=== PATIENT | female | born 1975 | race Caucasian/White ===

== ENCOUNTER 2024-01-24 16:36 | Emergency (ER) | payer OTHER, SELFPAY ==
[2024-01-24] VITALS (14 sets, daily range): BP systolic 204–217; BP diastolic 97–106; PULSE 48–62; RESP 14–16; TEMP 36.4; O2SAT 95–97
--- NOTE | 2024-01-24 16:53 | ED.GENADULT ---
HPI - General Adult General Time Seen by Provider: 16:54 Date Seen: 01/24/24 Chief complaint: Hypertension Stated complaint: high blood pressure Time Seen by Provider: 01/24/24 16:53 Source: patient, RN notes reviewed, old records reviewed and other (Provider at urgent care) Mode of arrival: ambulatory Limitations: no limitations History of Present Illness HPI narrative: Colleen is a very pleasant 48-year-old female with history of recent weight gain, caffeine use who comes to the emergency room from the clinic today for elevated blood pressures. Colleen was noted to have had discomfort in her ear and went to urgent care at which time they removed the end of a hearing assistance piece. However, during that time she had elevated blood pressure of 227/101. Urgent care provider tells me that you she was able to find some indigestion type problems and therefore felt this needed to be evaluated in the emergency room. Patient was sent by private vehicle. Here in the emergency room a me tells me that her blood pressure has been elevating over the past 2 years and was considered borderline. She states that she never needed to use of blood pressure medication. She notes a 30 lb weight gain over the past few years and believes that she is in menopause. She denies chest pain shortness of breath headache visual changes nausea vomiting. The indigestion she experienced was episodic yesterday and was after she had a Coke Zero which she states is often a trigger. No such symptoms today. No changes in how she feels with activity. Patient has recently had cold-like symptoms and has been using Zicam. She also takes hydroxyzine occasionally for itching. She describes itching of her skin her hands and her scalp at times. She has not had her TSH checked in the past. Patient does note that she has had some back pain but this has been present previously and is usually associated with needing or bending over her computer. 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 Related Data Home Medications ?Medication ?Instructions ?Recorded ?Confirmed cholecalciferol (vitamin D3) 10 10 mcg PO QDAY 01/24/24 01/24/24 mcg (400 unit) capsule hydroxyzine HCl 25 mg tablet mg PO 01/24/24 01/24/24 sertraline 100 mg tablet 100 mg PO BID 01/24/24 01/24/24 Previous Rx's ?Medication ?Instructions ?Recorded ciprofloxacin 0.3 %-dexamethasone 4 p otic (ear) BID #7.5 mL 01/24/24 0.1 % ear drops,suspension lisinopril 10 1 tab PO DAILY #14 tabs 01/24/24 mg-hydrochlorothiazide 12.5 mg tablet (Zestoretic) Allergies Allergy/AdvReac Type Severity Reaction Status Date / Time amoxicillin Allergy Severe hands and Verified 01/24/24 15:47 feet swelling nickel Allergy Mild swelling Verified 01/24/24 15:47 at site penicillin V Allergy Mild swelling Verified 01/24/24 15:47 sulfamethoxazole Allergy Mild Hives Verified 01/24/24 15:47 trimethoprim Allergy Mild Hives Verified 01/24/24 15:47 Sulfa drugs Allergy Mild Hives Uncoded 01/24/24 15:47 Review of Systems Status of ROS: Reports: 10 or more systems reviewed and unremarkable except as noted in History and below Narrative: Stressful job at times. Const: Denies: fever, chills or fatigue Eyes: Denies: change in vision, blurry vision, floaters or seeing flashes ENMT: Reports: nasal congestion; Denies: throat pain, neck pain, difficulty swallowing, vertigo or nasal discharge Cardio: Denies: chest pain, palpitations, edema, swelling of feet/ankles, lightheadedness or shortness of breath with exertion Resp: Denies: shortness of breath, cough or wheezing GI: Reports: heartburn (Transient yesterday); Denies: nausea, vomiting, diarrhea, difficulty swallowing or blood in stool : Denies: painful urination or urinary frequency Musculo: Denies: neck pain Integ/Breast: Reports: itching; Denies: rash Neuro: Denies: headache, numbness in extremities, weakness in extremities, lack of coordination, dizziness or vertigo Endo: Denies: fatigue Allergy/Immuno: Denies: wheezing PFSH PFSH Social History Smoking Status: Never smoker Non-prescribed substance use: denies use Exam Narrative: Exam Narrative: Alert and oriented. No acute distress. EOM is full. Face is symmetrical and mentation is normal. Neck is supple. Heart with regular rate and rhythm without additional heart sounds or murmurs. Lungs are clear bilaterally. Abdomen is soft nontender. Lower extremities without edema or calf tenderness. Moving all extremities. Nontoxic in appearance. Const: Vital Signs, click to edit/add: Vital Signs - 24 hr 01/24/24 16:42 Temperature 97.6 F Pulse Rate [Pulse Oximeter] 60 Respiratory Rate 14 Blood Pressure [Ri ght Forearm] 207/106 H Pulse Oximetry 97 Oxygen Delivery Me thod Room Air Documenting provider has reviewed patient's vital signs: yes Course Course ED Course: Colleen is presenting with elevated blood pressure. Patient was sent because of concerns regarding possible angina equivocal in symptoms of heartburn and back pain. However upon further discussion heartburn was transient and patient states that this is usually associated with certain foods or drinks with Coke Zero being 1 of them. She did have Coke Zero yesterday. No such symptoms today. Patient notes that her back pain is chronic and that she actually feels better after chiropractic appointment earlier today. Therefore I do not think we are dealing with a hypertensive urgency or emergency. That being said, patient certainly should be considered for blood pressure treatment. My guess is that she is going to have a very hard time getting in to the clinic in a timely fashion and therefore have offered to do some blood tests and evaluation here today. Of course if she wants to I will allow her to depart but she is opting to have test done here. Will do an EKG, troponin, CBC, comprehensive panel, TSH, magnesium, and chest x-ray. Reevaluation(s) Reevaluation #1: Colleen continues to be asymptomatic. Blood pressure did drop to 190 systolic without treatment. Most recent blood pressure is 204 systolic. I spoke to Colleen about the initiation of antihypertensives using a diuretic. She is in agreement with this. Reevaluation #2: Patient notes that she did take a COVID test last week and it was negative. Vital Signs Vital signs: Initial Vital Signs Temperature 97.6 F 01/24/24 16:42 Temperature Source Temporal Artery Scan 01/24/24 16:42 Pulse Rate 60 01/24/24 16:42 Pulse Rhythm Regular 01/24/24 16:42 Respiratory Rate 14 01/24/24 16:42 Blood Pressure 207/106 H 01/24/24 16:42 Blood Pressure Mean 139 H 01/24/24 16:42 Blood Pressure Position Sitting 01/24/24 16:42 Pulse Oximetry 97 09/20/24 16:42 Oxygen Delivery Method Room Air 01/24/24 16:42 Vital Signs Temperature 97.6 F 01/24/24 16:42 Pulse Rate 60 01/24/24 16:42 Respiratory Rate 14 01/24/24 16:42 Blood Pressure 207/106 H 01/24/24 16:42 Pulse Oximetry 97 01/24/24 16:42 Oxygen Delivery Method Room Air 01/24/24 16:42 Temperature 97.6 F 01/24/24 16:42 Pulse Rate 60 01/24/24 16:42 Respiratory Rate 14 01/24/24 16:42 Blood Pressure 207/106 H 01/24/24 16:42 Pulse Oximetry 97 01/24/24 16:42 Oxygen Delivery Method Room Air 01/24/24 16:42 Medical Decision Making MDM Narrative Medical decision making narrative: 1. Hypertension-no evidence of a hypertensive emergency today. However, given patient's elevated blood pressures that have been climbing over the past 2 years I do think she is in need of treatment. Creatinine and electrolytes are within normal limits. EKG does not show any acute changes. Given this will start patient on a diuretic. Because her blood pressure is elevated over 150 there is a suggestion by up-to-date that dual therapy is superior. Therefore will use lisinopril/hydrochlorothiazide also known as Zestoretic at 10 mg/12.5 mg daily. I do not have this available in the hospital and therefore have given her a dose of lisinopril 10 mg p.o.. I have warned her that this is a diuretic and she will likely urinate a few times tonight. Tomorrow she may start her Zestoretic which was sent to the pharmacy. I did state that the goal of the therapy now is not to have normal blood pressure tomorrow but start a gradual reduction with the ultimate goal of less than 120 systolic in the future. Patient may also start walking 10-15 minutes at a leisurely pace. She should also have benefit from decreasing the amount of caffeine daily. 2. Disposition-home after receiving lisinopril 10 mg p.o. here. Recommend follow-up next week with either the [facility] or our clinic attached here to the hospital. Would recommend recheck of potassium and creatinine with a basic panel because of use of new medications. Also recommend follow-up for the chronic itching the patient experiences. She did have a mild elevation of liver function tests but I would suspect this may be related to fatty liver. Further evaluation is necessary. Return to the emergency room for headache, visual changes, changes in mentation, chest pain, vomiting, worsening symptoms. TSH is still pending at this time. Medical Records Medical records reviewed: Yes I reviewed the patient's medical records Lab Data Lab results reviewed: Yes I reviewed the patient's lab results Labs: Lab Results 01/24/24 01/24/24 Range/Units 17:15 17:35 WBC 9.14 (4.50-11.00) K/uL RBC 4.55 (4.00-5.20) m/uL Hgb 14.2 (12.0-16.0) gm/dL Hct 43.4 (33.0-51.0) % MCV 95 (80-100) fL MCH 31 (26-34) pg MCHC 33 (32-36) gm/dL RDW Coeff of Mitra 13.0 (11.5-15.5) % Plt Count 275 (140-440) K/uL Neut % (Auto) 64.0 (42.0-72.0) % Lymph % (Auto) 25.6 (20-44) % [place] % (Auto) 6.5 (0.0-11.0) % Eos % (Auto) 3.1 (0.0-7.0) % Baso % (Auto) 0.5 (0.0-3.0) % Neut # (Auto) 5.85 (1.7-7.0) K/uL Lymph # (Auto) 2.34 (0.90-2.90) K/uL [place] # (Auto) 0.60 (0.00-0.90) K/UL Eos # (Auto) 0.28 (0.00-0.50) K/uL Baso # (Auto) 0.05 (0.00-0.30) K/uL Abs Immat Gran (auto) 0.03 (0.00-0.30) K/uL Imm/Tot Granulo (auto) 0.3 % Sodium 136 (135-149) mmol/L Potassium 3.9 (3.6-5.1) mmol/L Chloride 103 (96-114) mmol/L Carbon Dioxide 24 (20-32) mmol/L Anion Gap 9 (7-15) mEq/L BUN 15 (5-24) mg/dL Creatinine 0.7 (0.5-1.5) mg/dL Estimated GFR 106 ml/min Glucose 94 (60-115) mg/dL Calcium 10.1 (8.4-10.6) mg/dL Magnesium 2.2 (1.5-2.6) mg/dL Total Bilirubin 0.9 (0.1-1.5) mg/dL AST 49 H (12-35) U/L ALT 68 H (4-35) U/L Alkaline Phosphatase 81 (40-150) U/L Total Protein 7.6 (6.0-8.3) g/dL Albumin 4.6 (3.3-5.0) g/dL POC Troponin I 0.01 (0.01-0.04) ng/ml Imaging Data Chest x-ray: Attestation: I have reviewed the pertinent imaging results. My impression: No obvious abnormalities. Radiologist's impression: FINDINGS: The sensitivity and specificity of the exam are moderately limited by the patient`s body habitus. Mediastinum: The mediastinum is normal in appearance. The heart silhouette is normal in size and morphology. Lung: Both lungs are unremarkable in appearance. No sign of pleural effusion seen. No pneumothorax is identified. Bone and Soft tissue: Unremarkable for age. Metallic brassiere clips are noted over the neck and thoracic inlet. IMPRESSION: 1. No acute cardiopulmonary disease is seen. ECG Data Attestation: I personally reviewed and interpreted this ECG as follows: Interpretation: EKG by my read shows sinus bradycardia at a rate of 58. QT and SC intervals within normal limits. I do not see any acute ST or T-wave changes. Poor R-wave progression is noted. Discharge Plan Discharge Clinical Impression: Hypertension Patient Disposition: Home, Self-Care Condition: Improved Additional Instructions: 1. Your given lisinopril which is an NHUNG-inhibitor and diuretic for your blood pressure tonight. Tomorrow picker and sorter load and unload your new blood pressure medication which is a combination of lisinopril and hydrochlorothiazide. Both of these medications are diuretics and act on the kidney. You may start taking this medication tomorrow morning. 2. Trying keep a diary of blood pressure checks throughout the week. 3. Recommend follow-up at the [facility] [phone] or our [facility] attached the [facility] which is [phone] next week. I suggest a recheck of the basic panel to check potassium and creatinine which can be affected by these particular blood pressure medicines. 4. Try to limit stress as much as possible. Limit your caffeine intake. I suggest walking 10-15 minutes today. This does not have to be at a fast pace. 5. Return or seek medical attention for worsening symptoms such as headache, floaters in your vision, confusion, chest pain. Prescriptions: New lisinopril-hydrochlorothiazide [Zestoretic] 10-12.5 mg tablet 1 tab PO DAILY Qty: 14 0RF No Action sertraline 100 mg tablet 100 mg PO BID hydroxyzine HCl 25 mg tablet PO cholecalciferol (vitamin D3) 10 mcg (400 unit) capsule 10 mcg PO QDAY ciprofloxacin-dexamethasone 0.3-0.1 % drops,suspension 4 drp otic (ear) BID Qty: 7.5 0RF Follow Up/Referrals: Mickie Suggs RD [Dietitian/Relationship Management Lead] - Stand Alone Forms: [employer] Info Instructions
--- NOTE | 2024-01-24 17:15 | CRLHL7_ITS ---
For Patients: As a result of the Century Cures Act, medical imaging exams and procedure reports are released immediately into your electronic medical record. You may view this report before your referring provider. If you have questions, please contact your health care provider. INDICATION: Hypertension TECHNIQUE: Chest radiograph 1 view COMPARISON: None FINDINGS: The sensitivity and specificity of the exam are moderately limited by the patient`s body habitus. Mediastinum: The mediastinum is normal in appearance. The heart silhouette is normal in size and morphology. Lung: Both lungs are unremarkable in appearance. No sign of pleural effusion seen. No pneumothorax is identified. Bone and Soft tissue: Unremarkable for age. Metallic brassiere clips are noted over the neck and thoracic inlet. IMPRESSION: 1. No acute cardiopulmonary disease is seen. Dictated by: Miki De Jesus MD @ 01/24/2024 18:45:32 (Electronically Signed)
[2024-01-24 17:50] LABS: Basophils Absolute Auto 0.05 K/uL (0.00-0.30); Basophils Percent Auto 0.5 % (0.0-3.0); Eosinophils Absolute Auto 0.28 K/uL (0.00-0.50); Eosinophils Percent Auto 3.1 % (0.0-7.0); Hematocrit 43.4 % (33.0-51.0); Hemoglobin* 14.2 gm/dL (12.0-16.0); Immature Granulocytes Abs Auto 0.03 K/uL (0.00-0.30); Immature Granulocytes Pct Auto 0.3 %; Lymphocytes Absolute Auto 2.34 K/uL (0.90-2.90); Lymphocytes Percent Auto 25.6 % (20-44); Mean Corpuscular HGB Conc 33 gm/dL (32-36); Mean Corpuscular Hemoglobin 31 pg (26-34); Mean Corpuscular Volume 95 fL (80-100); Monocytes Percent Auto 6.5 % (0.0-11.0); Neutrophils Absolute Auto 5.85 K/uL (1.7-7.0); Platelet Count* 275 K/uL (140-440); Red Blood Count 4.55 m/uL (4.00-5.20); White Blood Count* 9.14 K/uL (4.50-11.00)
[2024-01-24 17:53] LABS: Troponin, Point-of-Care* 0.01 ng/ml (0.01-0.04)
[2024-01-24 18:07] LABS: Slide Review Reflex No
[2024-01-24 18:12] LABS: Albumin* 4.6 g/dL (3.3-5.0); Chloride* 103 mmol/L (96-114)
[2024-01-24 18:13] LABS: Potassium* 3.9 mmol/L (3.6-5.1); Sodium* 136 mmol/L (135-149)
[2024-01-24 18:15] LABS: Alanine Aminotransferase* 68 U/L (4-35); Alkaline Phosphatase* 81 U/L (40-150); Anion Gap 9 mEq/L (7-15); Aspartate Amino Transferase* 49 U/L (12-35); Bilirubin Total* 0.9 mg/dL (0.1-1.5); Blood Urea Nitrogen* 15 mg/dL (5-24); Carbon Dioxide* 24 mmol/L (20-32); Creatinine* 0.7 mg/dL (0.5-1.5); Estimated Glomerular Filt Rate 106 ml/min; Total Protein* 7.6 g/dL (6.0-8.3)
[2024-01-24 18:16] LABS: Calcium* 10.1 mg/dL (8.4-10.6); Glucose* 94 mg/dL (60-115); Magnesium* 2.2 mg/dL (1.5-2.6)
[2024-01-24] MEDS: lisinopriL 10 MG TABLET PO (19:53)
--- NOTE | 2024-01-24 19:58 | ED.NURSE ---
Dr. Garces updated on Pt BP, Pt asymptomatic, ok to admin lisinopril and discharge to home.
== END 2024-01-24 20:18 | disposition home or self-care (01) ==
PROVIDERS: Emergency Provider Family Medicine
DX: I10 Essential (primary) hypertension (principal)
CPT/HCPCS: 36415; 71045; 80053; 83735; 84443; 84484; 85025; 93005; 99284; 99285; A9270

== ENCOUNTER 2024-07-21 12:48 | Outpatient (CLI) | payer BC, SELFPAY ==
--- NOTE | 2024-07-21 13:00 | CRLHL7_ITS ---
For Patients: As a result of the Century Cures Act, medical imaging exams and procedure reports are released immediately into your electronic medical record. You may view this report before your referring provider. If you have questions, please contact your health care provider. BILATERAL SCREENING MAMMOGRAM WITH COMPUTER-AIDED DETECTION AND TOMOSYNTHESIS TECHNIQUE: CC and MLO views were obtained. These mammographic images have been obtained using full-field digital technique. These mammographic images were interpreted with the benefit of computer-aided detection. Breast Tomosynthesis was used in this interpretation. COMPARISON FILM: 05/24/23, 02/02/21, 04/16/19. FINDINGS: The breasts are heterogeneously dense, which may obscure small masses. IMPRESSION: There is no radiographic evidence for malignancy. ASSESSMENT: BI-RADS Category 2: Benign RECOMMENDATION: Routine screening mammogram in 1 year. A lay language report of this examination will be provided to the patient. Can Staton M.D. Diagnostic Radiologist [email or web address] SP/Dictated by: Can Staton MD @ 07/22/2024 8:52:00 AM (Electronically Signed)
== END 2024-07-21 12:49 | disposition home or self-care (01) ==
LOC: MAMMO 12:49
PROVIDERS: PCP Registered Nurse; Visit Provider Registered Nurse
DX: Z12.31 Encounter for screening mammogram for malignant neoplasm of breast (principal); R92.333 Mammographic heterogeneous density, bilateral breasts
CPT/HCPCS: 77063; 77067